=== PATIENT | male | born 1970 | race Caucasian/White ===

== ENCOUNTER 2018-05-18 08:02 | Day surgery (SDC) | payer BC, OTHER ==
[2018-05-17 09:36] VITALS: BMI 33.7
[2018-05-18 10:02] VITALS: TEMP 97.6
[2018-05-18 11:07] VITALS: BP 142/89; PULSE 87
--- NOTE | 2018-05-19 10:57 | PATH ---
Surgical Pathology Report Patient Name: JAMEEL PAULINO [facility]. Rec. #: [id number] /Age/Gender: 1970 (Age: 48) / M Account: [id number] Location: [facility] SURGICAL Taken: 05/18/2018 Received: 05/18/2018 Reported: 05/19/2018 Physicians: Ramy Rea D.O. Specimen(s) Received A: COLON, RIGHT, POLYP #1 B: COLON, RIGHT, POLYP #2 C: HEPATIC FLEXURE POLYP D: SIGMOID COLON POLYP Clinical History Rectal bleeding Postoperative diagnosis: Colon polyps, diverticulosis, hemorrhoids Final Diagnosis A. COLON, RIGHT, POLYP #1, POLYPECTOMY: TUBULAR ADENOMA. B. COLON, RIGHT, POLYP #2, POLYPECTOMY: TUBULAR ADENOMA. C. HEPATIC FLEXURE, POLYP, POLYPECTOMY: TUBULAR ADENOMA. D. SIGMOID COLON, POLYP, BIOPSY: TUBULAR ADENOMA. Electronically Signed Aneta Friedman M.D. Addendum Reported: 05/24/2018 Addendum Diagnosis Parts A and B, Immunohistochemical stains for MisMatch Repair Protein Analysis performed at [facility] in [place], [place] ([id number]) and interpreted at [facility] show the following: RESULTS: HMLH-1 INTACT NUCLEAR EXPRESSION HMSH-2 INTACT NUCLEAR EXPRESSION HMSH-6 INTACT NUCLEAR EXPRESSION PMS2 INTACT NUCLEAR EXPRESSION INTERPRETATION: No loss of nuclear expression of MMR proteins: low probability of microsatellite instability-high (MSI-H) Aneta Friedman M.D. Gross Description A. Received in formalin labeled "right colon polyp #1," is a 1.3 x 0.9 x 0.3 cm aggregate of edwards, irregular to polypoid soft tissue fragments. The formalin is filtered and the specimen is entirely submitted in one cassette. B. Received in formalin, labeled "right colon polyp #2" is a edwards, irregular portion of soft tissue measuring 0.3 cm. in greatest dimension. The specimen is submitted in toto in one cassette. C. Received in formalin, labeled "hepatic flexure polyp" is a edwards, polypoid portion of soft tissue measuring 0.8 cm. in greatest dimension. The specimen is submitted in toto in one cassette. D. Received in formalin, labeled "sigmoid colon polyp biopsy" are 2 edwards, irregular portions of soft tissue averaging 0.3 cm. in greatest dimension. The specimens are submitted in toto in one cassette. 05/18/201805/18/2018
== END 2018-05-18 11:10 | disposition home or self-care (01) ==
LOC: JASU-SURG 08:02
PROVIDERS: ATTEND Internal Medicine Gastroenterology
PROC: 0DBL8ZX Excision of Transverse Colon, Via Natural or Artificial Opening Endoscopic, Diagnostic (ICD-10-PCS; 2018-05-18)
PROC: 0DBN8ZX Excision of Sigmoid Colon, Via Natural or Artificial Opening Endoscopic, Diagnostic (ICD-10-PCS; 2018-05-18)
PROC: 0DBF8ZX Excision of Right Large Intestine, Via Natural or Artificial Opening Endoscopic, Diagnostic (ICD-10-PCS; principal; 2018-05-18 09:00)
DX: K92.1 Melena (principal); D12.5 Benign neoplasm of sigmoid colon; D12.3 Benign neoplasm of transverse colon; K64.8 Other hemorrhoids
CPT/HCPCS: 88305-TC